=== PATIENT | female | born 1980 | race Caucasian/White ===

== ENCOUNTER 2019-05-23 16:30 | Emergency (ER) | payer SELFPAY ==
[~2019-05-23] VITALS: Ht 157.5 cm; Wt 200.0 kg
[2019-05-23 18:11] VITALS: BP 153/105
[2019-05-23] MEDS ORDERED: ONDANSETRON HCL 4MG/2ML INJ IV ONE (18:15)
[2019-05-23] MEDS ORDERED: SODIUM CHLORIDE 0.9% 1,000 ML IV ONE (18:15)
== END 2019-05-23 18:35 | disposition home or self-care (01) ==
LOC: ER 16:30
DX: F41.9 Anxiety disorder, unspecified (principal); F12.10 Cannabis abuse, uncomplicated; R00.0 Tachycardia, unspecified; Z98.890 Other specified postprocedural states
CPT/HCPCS: 93005; 96374; 99283; J2405; J7030